=== PATIENT | female | born 1975 | race Two or more races ===

== ENCOUNTER 2022-05-30 17:55 | Emergency (ER) | payer OTHER ==
[~2022-05-30] VITALS: Ht 152.4 cm; Wt 82.0 kg
[2022-05-30 19:08] VITALS: BP 100/51
[2022-05-30] MEDS ORDERED: KETOROLAC TROMETH 60MG/2ML VIAL IM ONE (20:00)
[2022-05-30] MEDS ORDERED: IBUP800T26 PO (20:09)
== END 2022-05-30 20:16 | disposition home or self-care (01) ==
LOC: ER 17:55
DX: R51.9 Headache, unspecified (principal); R42 Dizziness and giddiness; W18.39XA Other fall on same level, initial encounter; Y93.89 Activity, other specified; Y92.89 Other specified places as the place of occurrence of the external cause; Y99.8 Other external cause status
CPT/HCPCS: 96372; 99283; J1885